=== PATIENT | male | born 1975 | race Caucasian/White ===

== ENCOUNTER 2022-10-11 09:40 | Emergency (ER) | payer OTHER, SELFPAY ==
[2022-10-11 09:48] VITALS: BP 168/105; PULSE 44; RESP 16; TEMP 36.5; O2SAT 97; BMI 38.5
[2022-10-11] MEDS: morphine 4 mg/mL SDV 1 mL IVP (11:21)
[2022-10-11] MEDS: ondansetron 2 mg/ML SDV 2 mL 4 MG IVP (11:21)
[2022-10-11] MEDS: sodium chloride 0.9% 1,000 ML 999 ML IV (11:25)
--- NOTE | 2022-10-11 11:30 | ED_ITS ---
Documented by User: Sylwia Whitfield, ENGINE DYNAMOMETER TESTER-C 10/11/22 14:44 HPI - Abdominal Pain General: Chief Complaint: Abdominal Pain Stated Complaint: right side/urinary pain Time Seen by Provider: 10/11/22 10:24 History of Present Illness: Patient reports that he is in for abdominal pain. He has right lower quadrant abdominal pain. He reports that it started abruptly at 7:00 this morning and has been very sharp with lots of nausea and vomiting. He reports at this point there is nothing to vomit he is just dry heaving. He denies any fever or chills. He does have his appendix and his gallbladder. He recently, in August 2022, had Angy-en-Y procedure in [place]. He reports that he has not had any issues postop he has been doing very well. He reports that this does not feel like it is related to his surgery. He denies any urinary symptoms. He denies diarrhea or constipation. Associated Symptoms: Reports nausea and vomiting; Denies chills, constipation, diarrhea, dysuria and fever(s) Review of Systems Const: Denies: fever(s), chills or body aches Card: Denies: chest pain, palpitations or irregular heart rhythm Resp: Denies: dyspnea, productive cough or non-productive cough GI: Reports: abdominal pain, nausea and vomiting; Denies: diarrhea or constipation : Denies: flank pain, difficulty urinating, dysuria, urinary frequency, urinary urgency or urinary hesitancy Physical Exam Const: COMMON NORMALS: no acute distress, patient oriented x3 and alert Neck/C-Spine: COMMON NORMALS: no JVD Resp: COMMON NORMALS: normal respiratory effort, No use of accessory muscles and clear to auscultation bilaterally AUSCULTATION: clear to auscultation bilaterally Cardio: COMMON NORMALS: no JVD, regular rate, regular rhythm, S1 normal heart sound present, S2 normal heart sound present and No murmurs present (Cardio) RATE: regular rate RHYTHM: regular rhythm HEART SOUNDS: S1 normal heart sound present and S2 normal heart sound present GI: COMMON NORMALS: Soft to palpation INSPECTION: Yes normal to inspection (Healed postsurgical scars from recent Angy-en-Y procedure) AUSCULTATION: Yes normoactive bowel sounds PALPATION: Yes Soft to palpation, Yes Tenderness to palpation present (GI), Yes Guarding due to palpation present (GI) in the RLQ and Yes Rebound tenderness present Details: [place]ney's point Neuro: COMMON NORMALS: patient oriented x3 SENSORIUM/ORIENTATION: Yes alert Course Vital Signs: Vital signs: Vital Signs Temperature 97.7 F 10/11/22 09:48 Pulse Rate 75 10/11/22 14:40 Respiratory Rate 16 10/11/22 09:48 Blood Pressure 168/105 10/11/22 09:48 Pulse Oximetry 96 10/11/22 13:27 Oxygen Delivery Me thod 10/11/22 13:27 MDM - Abdominal Pain Medical Decision Making Differentials include renal stone, appendicitis, complication of Angy-en-Y pr ocedure. Labs with a normal white blood cell count Urine with 3+ blood CT abdomen and pelvis shows mild right sided hydroureteronephrosis and perinephric/periureteral stranding secondary to a 4 mm distal right ureteral calculus. Given patient's Angy-en-Y procedure no Toradol was given. Treat patient with Flomax, and antibiotic to cover for infection with stranding noted on CT. Consulted with Dr. Kinsey for outpatient pain control and hydrocodone 5 mg 325 mg 1 p.o. every 4-6 hours as needed pain #20 no refills was given. Advised patient of conservative treatment at home. Advised him for red flags for worsening and return to the ER should he notice any new or worsening symptoms. Of note, the patient's heart rate has been consistently 70 to 90s regular rhythm and rate. Initial triage note says pulse was 44 however I think that was a typo. Lab Data 10/11/22 11:25 10/11/22 11:25 Labs/Radiology: Radiology Impressions Abdomen/Pelvis CT 10/11/22 12:22 IMPRESSION: 1. Mild right-sided hydroureteronephrosis and perinephric/periureteral stranding, secondary to a 4 mm distal right ureteral calculus. 2. Additional findings, as above. COMMENTS: Consistent with the [employer]'s Incidental Findings Committee white paper (J Am Oliva Radiol 2018): Any incidental renal lesion less than 1 cm or classified as too small to characterize, or any incidental cystic renal lesion characterized as simple-appearing, is likely benign. No follow-up imaging is recommended for these lesions per consensus recommendations based on imaging criteria. Laboratory Results WBC 8.0 10^3/uL (4.0-10.0) 10/11/22 11:25 RBC 5.01 10^6/uL (4.1-5.3) 10/11/22 11:25 Hgb 15.0 g/dL (11.7-16.6) 10/11/22 11:25 Hct 43.9 % (42.0-52.0) 10/11/22 11:25 MCV 87.6 fl (80-94) 10/11/22 11:25 MCH 29.9 pg (28.0-34.0) 10/11/22 11:25 MCHC 34.2 g/dL (30.0-36.0) 10/11/22 11:25 RDW 13.5 % (12.1-15.1) 10/11/22 11:25 Plt Count 225 10^3/cmm (130-400) 10/11/22 11:25 MPV 10.3 fL (7.4-10.4) 10/11/22 11:25 Neut % (Auto) 82.5 % 10/11/22 11:25 Lymph % (Auto) 10.7 % 10/11/22 11:25 [place] % (Auto) 5.5 % 10/11/22 11:25 Eos % (Auto) 0.4 % 10/11/22 11:25 Baso % (Auto) 0.5 % 10/11/22 11:25 Neut # (Auto) 6.64 10^3/uL (1.8-7.7) 10/11/22 11:25 Lymph # (Auto) 0.9 10^3/uL (0.8-4.8) 10/11/22 11:25 [place] # (Auto) 0.4 10^3/uL (0.2-0.9) 10/11/22 11:25 Eos # (Auto) 0.0 10^3/uL (0.0-0.8) 10/11/22 11:25 Baso # (Auto) 0.0 10^3/uL (0.0-0.1) 10/11/22 11:25 Nucleated RBC % (auto) 0 % 10/11/22 11:25 Nucleated RBCs # 0.0 /100WBC 10/11/22 11:25 Sodium 138 mmol/L (136-145) 10/11/22 11:25 Potassium 3.5 mmol/L (3.5-5.1) 10/11/22 11:25 Chloride 104 mmol/L (98-107) 10/11/22 11:25 Carbon Dioxide 23 mmol/L (22-29) 10/11/22 11:25 Anion Gap 14.5 (5-19) 10/11/22 11:25 BUN 11 mg/dL (6-20) 10/11/22 11:25 Creatinine 0.7 mg/dL (0.7-1.2) 10/11/22 11:25 GFR Calculation 120.4 mL/min (90-130) 10/11/22 11:25 Glucose 113 mg/dL (65-115) 10/11/22 11:25 Calculated Osmolality 286 mOsm/kg (285-295) 10/11/22 11:25 Calcium 9.2 mg/dL (8.5-10.5) 10/11/22 11:25 Total Bilirubin 0.5 mg/dL (0.15-1.2) 10/11/22 11:25 AST 22 U/L (0-40) 10/11/22 11:25 ALT 31 U/L (0-41) 10/11/22 11:25 Alkaline Phosphatase 80 U/L (40-130) 10/11/22 11:25 Total Protein 7.0 g/dL (6.6-8.7) 10/11/22 11:25 Albumin 4.6 g/dL (3.5-5.2) 10/11/22 11:25 Globulin 2.4 g/dL (1.3-4.6) 10/11/22 11:25 Lipase 28 U/L (13-60) 10/11/22 11:25 Urine Color Yellow (Yellow) 10/11/22 11:15 Urine Appearance Clear (CLEAR) 10/11/22 11:15 Urine pH 6 (5-7) 10/11/22 11:15 Ur Specific [place] 1.020 (1.005-1.030) 10/11/22 11:15 Urine Protein Neg (Negative) 10/11/22 11:15 Urine Glucose (UA) Norm (Normal) 10/11/22 11:15 Urine Ketones Negative (Negative) 10/11/22 11:15 Urine Blood 3+ (Negative) H 10/11/22 11:15 Urine Nitrate Negative (Negative) 10/11/22 11:15 Urine Bilirubin Neg (Negative) 10/11/22 11:15 Urine Urobilinogen Neg mg/dL (Negative) 10/11/22 11:15 Ur Leukocyte Esterase Negative (Negative) 10/11/22 11:15 Urine RBC 5-10 /hpf (0-2) H 10/11/22 11:15 Urine WBC None /hpf (0-5) 10/11/22 11:15 Ur Squamous Epith Cells None /hpf (0-5) 10/11/22 11:15 Amorphous Sediment Not Reportable 10/11/22 11:15 Urine Bacteria None /hpf (NONE) 10/11/22 11:15 Urine Mucus 1+ /hpf 10/11/22 11:15 Discharge Plan Discharge Patient Disposition: Home Clinical Impression: Hydroureteronephrosis, Calculus, renal Condition: Stable Prescriptions: New cefdinir 300 mg capsule 300 mg PO BID 7 Days Qty: 14 0RF Flomax 0.4 mg capsule 0.4 mg PO DAILY Qty: 7 0RF ondansetron 4 mg tablet,disintegrating 4 mg PO Q8H PRN (Reason: nausea and vomiting) Qty: 10 0RF Discharge Orders: Discharge ED (Routine); Ordered 10/11/22 Ordered By: Sylwia Whitfield Discharge Diet: Usual diet Discharge Activity: Increase activity as tolerated Patient Instructions: Kidney Stones (ED), How to Strain Your Urine (ED) Activity Restrictions/Additional Instructions: Take Flomax daily until you are able to pass the renal stone. Use hydrocodone as needed as prescribed for pain. Make sure that you are staying well-hydrated. Follow-up with primary care provider/bariatric surgeon. Return to the ER as needed for any new or worsening symptoms including, but not limited to, inability to urinate when you feel the need to go, worsening pain, fever, worsening blood in your urine, uncontrolled vomiting. Stand Alone Forms: Work/School Release Coding Level of Care Code ED Info Specialist for Chg Fwd Exam Detailed Documented by User: Ricky Kinsey DO 10/11/22 16:48 HPI - Abdominal Pain General: Chief Complaint: Abdominal Pain Stated Complaint: right side/urinary pain Time Seen by Provider: 10/11/22 10:24 Course Vital Signs: Vital signs: Vital Signs Temperature 97.7 F 10/11/22 09:48 Pulse Rate 75 10/11/22 14:40 Respiratory Rate 16 10/11/22 09:48 Blood Pressure 168/105 10/11/22 09:48 Pulse Oximetry 96 10/11/22 13:27 Oxygen Delivery Me thod 10/11/22 13:27 MDM - Abdominal Pain Medical Decision Making Differentials include renal stone, appendicitis, complication of Angy-en-Y procedure. Labs with a normal white blood cell count Urine with 3+ blood CT abdomen and pelvis shows mild right sided hydroureteronephrosis and perinephric/periureteral stranding secondary to a 4 mm distal right ureteral calculus. Given patient's Angy-en-Y procedure no Toradol was given. Treat patient with Flomax, and antibiotic to cover for infection with stranding noted on CT. Consulted with Dr. Kinsey for outpatient pain control and hydrocodone 5 mg 325 mg 1 p.o. every 4-6 hours as needed pain #20 no refills was given. Advised patient of conservative treatment at home. Advised him for red flags for worsening and return to the ER should he notice any new or worsening symptoms. Of note, the patient's heart rate has been consistently 70 to 90s regular rhythm and rate. Initial triage note says pulse was 44 however I think that was a typo. Chart reviewed and patient discussed with midlevel. Agree with assessment and p farhan. Lab Data 10/11/22 11:25 10/11/22 11:25 Labs/Radiology: Radiology Impressions Abdomen/Pelvis CT 10/11/22 12:22
[2022-10-11 11:40] LABS: Basophils % 0.5 %; Eosinophils % 0.4 %; Hematocrit 43.9 % (42.0-52.0); Lymphocytes # 0.9 10^3/uL (0.8-4.8); Lymphocytes % 10.7 %; Mean Corpuscular HGB Conc 34.2 g/dL (30.0-36.0); Mean Corpuscular Hemoglobin 29.9 pg (28.0-34.0); Mean Corpuscular Volume 87.6 fl (80-94); Mean Platelet Volume 10.3 fL (7.4-10.4); Monocytes # 0.4 10^3/uL (0.2-0.9); Monocytes % 5.5 %; Neutrophils # 6.64 10^3/uL (1.8-7.7); Neutrophils % 82.5 %; Nucleated Red Blood Cells % 0 %; Platelet Count 225 10^3/cmm (130-400); Red Blood Count 5.01 10^6/uL (4.1-5.3); Red Cell Distribution Width 13.5 % (12.1-15.1)
[2022-10-11 11:46] LABS: Bilirubin Urine Neg (Negative); Blood Urine 3+ (Negative); Glucose Urine UA Norm (Normal); Ketones Urine Negative (Negative); Leukocyte Esterase Urine Negative (Negative); Nitrate Urine Negative (Negative); Protein Urine Neg (Negative); Urine Appearance Clear (CLEAR); Urine Color Yellow (Yellow); Urobilinogen Urine Neg (Negative); pH Urine 6 (5-7)
[2022-10-11 11:53] LABS: Add Urine Culture? No; Add Urine Microscopic? YES; Mucus Urine 1+ /hpf
[2022-10-11 12:02] LABS: Alanine Aminotransferase 31 U/L (0-41); Albumin Level 4.6 g/dL (3.5-5.2); Alkaline Phosphatase 80 U/L (40-130); Anion Gap 14.5 (5-19); Aspartate Amino Transferase 22 U/L (0-40); Blood Urea Nitrogen 11 mg/dL (6-20); Calcium 9.2 mg/dL (8.5-10.5); Carbon Dioxide 23 mmol/L (22-29); Chloride 104 mmol/L (98-107); Globulin 2.4 g/dL (1.3-4.6); Glomerular Filtration Rate 120.4 mL/min (90-130); Glucose 113 mg/dL (65-115); Lipase 28 U/L (13-60); Osmolality Calculated 286 mOsm/kg (285-295); Potassium 3.5 mmol/L (3.5-5.1); Sodium 138 mmol/L (136-145); Total Bilirubin 0.5 mg/dL (0.15-1.2)
--- NOTE | 2022-10-11 12:22 | CTR_ITS ---
PROCEDURE INFORMATION: Exam: CT Abdomen And Pelvis With Contrast Exam date and time: 10/11/2022 12:55 PM Age: 46 years old Clinical indication: Abdominal pain; Localized; Right upper quadrant (ruq); Prior surgery; Surgery date: 1-6 months; Additional info: Rlq abd pain, recent jesika en y aug 2022 TECHNIQUE: Imaging protocol: Computed tomography of the abdomen and pelvis with contrast. Axial, coronal and sagittal reformatted images were created and reviewed. Radiation optimization: All CT scans at this facility use at least one of these dose optimization techniques: automated exposure control; mA and/or kV adjustment per patient size (includes targeted exams where dose is matched to clinical indication); or iterative reconstruction. Contrast material: OMNI 350; Contrast volume: 100 ml; Contrast route: INTRAVENOUS (IV); COMPARISON: No relevant prior studies available. RADIATION DOSE METRICS: Total DLP (mGy-cm): 1162.43 FINDINGS: Lungs: Right lower lobe calcified granulomata. Liver: Unremarkable. Gallbladder and bile ducts: Mild gallbladder distention without radiodense gallstones. Pancreas: Unremarkable. Spleen: Coarse calcified splenic granulomata. Adrenal glands: Normal. No mass. Kidneys and ureters: 4 mm low-density left renal lesion, too small to characterize. Mild right-sided hydroureteronephrosis and perinephric/periureteral stranding, secondary to a 4 mm distal right ureteral calculus (axial image 76 and coronal image 43). Stomach and bowel: Status post gastric bypass surgery. No obstruction. No bowel wall thickening. No pneumatosis. Appendix: Normal. Intraperitoneal space: No free fluid. No organized fluid collection. No free air. Vasculature: Unremarkable. No aneurysm. Lymph nodes: Calcified right hilar lymph nodes, consistent with prior granulomatous disease. Urinary bladder: Mild circumferential urinary bladder wall thickening, likely secondary to underdistention. Reproductive: Mildly enlarged prostate. Bones/joints: No acute osseous abnormality. Osteopenia. Mild degenerative changes. Soft tissues: Unremarkable. CT/CT abdomen pelvis w con* [id number] IMPRESSION: 1. Mild right-sided hydroureteronephrosis and perinephric/periureteral stranding, secondary to a 4 mm distal right ureteral calculus. 2. Additional findings, as above. COMMENTS: Consistent with the [employer]'s Incidental Findings Committee white paper (J Am Oliva Radiol 2018): Any incidental renal lesion less than 1 cm or classified as too small to characterize, or any incidental cystic renal lesion characterized as simple-appearing, is likely benign. No follow-up imaging is recommended for these lesions per consensus recommendations based on imaging criteria.
[2022-10-11] MEDS: iohexol 350 mg/mL 500 mL Btl (per mL) IV (13:01)
[2022-10-11 13:27] VITALS: O2SAT 96
[2022-10-11] MEDS: HYDROcodone-acetaminophen 5-325 mg Tablet 1 TAB PO (14:31)
[2022-10-11 14:40] VITALS: PULSE 75
== END 2022-10-11 14:41 | disposition home or self-care (01) ==
PROVIDERS: Emergency Provider Nurse Practitioner Family
DX: N13.2 Hydronephrosis with renal and ureteral calculous obstruction (principal)
CPT/HCPCS: 74177; 80053; 81001; 83690; 85025; 96374; 96375; 99285; J2270; J2405; J7030; Q9967